=== PATIENT | female | born 1945 | race Caucasian/White ===

== ENCOUNTER 2021-06-17 12:06 | Emergency (ER) | payer OTHER ==
[2021-06-18 14:07] LABS: SARS-CoV-2 NAA Not Detected (Not Detected)
== END 2021-06-17 14:20 | disposition home or self-care (01) ==
LOC: JVIRT 12:06
DX: Z11.52 Encounter for screening for COVID-19 (principal)
CPT/HCPCS: C9803; Q3014-GT; U0003; U0005

== ENCOUNTER 2024-01-29 04:24 | Day surgery (SDC) | payer OTHER ==
[2024-01-28 14:30] VITALS: BMI 25.2
[~2024-01-29 04:24] MED LIST: ACETAMINOPHEN 325 MG TABLET (FP) PO PRN; OFLOXACIN 0.3% OPHTHALMIC SOLUTION 5 ML BOTTLE OP SCH
[2024-01-29] MEDS ORDERED: TRIAMCINOLONE ACET 40MG/1ML VIAL ONE (07:37)
[2024-01-29] MEDS ORDERED: LIDOCAINE 1%/EPI 1:100000 (20 ML MULTI DOSE VIAL) ONE (07:40)
[2024-01-29] MEDS ORDERED: TETRACAINE 0.5% OPHTH SOLN 2 ML BOTTLE ONE (07:41)
[2024-01-29] MEDS ORDERED: OFLOXACIN 0.3% OPHTHALMIC SOLUTION 5 ML BOTTLE ONE (08:47)
[2024-01-29] MEDS ORDERED: KETOROLAC TROMETHAMINE 30 MG/1 ML VIAL ONE (11:35)
[2024-01-29] MEDS ORDERED: MIDAZOLAM HCL 2 MG/2 ML SINGLE DOSE VIAL ONE (11:35)
[2024-01-29] MEDS: TETRACAINE 0.5% OPHTH SOLN 2 ML BOTTLE OS ONE (11:40)
[2024-01-29] MEDS: POVIDONE-IODINE 5% OPHTHALMIC PREP 30 ML SOLUTION OS ONE (11:43)
[2024-01-29] MEDS: LIDOCAINE 1%/EPI 1:100000 (20 ML MULTI DOSE VIAL) INF ONE ×2 (11:51)
[2024-01-29] MEDS: BSS (NA/CA/MG/K) BALANCED SALT SOLUTION OPHTH SOLN 15 ML BOTTLE IO ONE (11:52)
[2024-01-29] MEDS: TRIAMCINOLONE ACETONIDE 40 MG/ML 10 ML VIAL NR ONE ×2 (12:17)
[2024-01-29 13:02] VITALS: RESP 18
[2024-01-29 14:00] VITALS: BP 156/73; PULSE 68; TEMP 97.8
== END 2024-01-29 13:13 | disposition home or self-care (01) ==
LOC: JASU-SURG 04:24
PROVIDERS: ATTEND Ophthalmology
PROC: 08U107Z Supplement of Left Eye with Autologous Tissue Substitute, Open Approach (ICD-10-PCS; principal; 2024-01-29 11:00)
DX: H11.002 Unspecified pterygium of left eye (principal)
CPT/HCPCS: 88304-TC